=== PATIENT | female | born 1975 | race Caucasian/White ===

== ENCOUNTER 2017-03-05 10:19 | Emergency (ER) | payer SELFPAY ==
--- NOTE | 2017-03-05 10:55 | ED.PDOC ---
History of Present Illness - General Chief Complaint: Lower Extremity Injury Stated Complaint: right ankle pain s/p tripping Time Seen by Provider: 03/05/17 10:52 Source: patient, RN notes reviewed, Vital Signs reviewed Exam Limitations: no limitations - History of Present Illness Initial Comments: Patient reports she jumped off the porch onto some rocks and injured her R ankle. She is not sure exactly what happened. Now having pain over her lateral ankle. No popping, no numbness or tingling. Occurred: just prior to arrival Pain - Lower Extremity: moderate: Right Ankle Method of Injury: twisted Improving Factors: cold therapy, rest Worsening Factors: movement Allergies/Adverse Reactions: Allergies Acetaminophen [From Tylenol W/Codeine] Allergy (Verified 03/05/17 10:34) Butorphanol [From Stadol] Allergy (Verified 03/05/17 10:34) Codeine [From Tylenol W/Codeine] Allergy (Verified 03/05/17 10:34) Home Medications: Ambulatory Orders Lisinopril 40 mg PO 03/05/17 Review of Systems - Review of Systems Constitutional: States: no symptoms reported Musculoskeletal: States: joint pain - R ankle, joint swelling - R ankle Skin: States: no symptoms reported Neurological: Denies: numbness, paresthesia, tingling, weakness Past Medical History (General) - Patient Medical History Hx Seizures: No Hx Stroke: No Hx Dementia: No Hx Asthma: No Hx of COPD: No Hx Cardiac Disorders: No Hx Congestive Heart Failure: No Hx Pacemaker: No Hx Hypertension: Yes Hx Thyroid Disease: No Hx Diabetes: No Hx Gastroesophageal Reflux: No Hx Renal Disease: No Hx Cancer: No Hx of HIV: No Hx Hepatitis C: No Hx MRSA: No Surgical History: Hysterectomy, other - Vaccination History Hx Tetanus, Diphtheria Vaccination: No Hx Influenza Vaccination: No Hx Pneumococcal Vaccination: No Immunizations Up to Date: No - Social History Hx Tobacco Use: Yes Hx Chewing Tobacco Use: No Hx Alcohol Use: Yes Hx Substance Use: No Hx Substance Use Treatment: No Hx Depression: No Feels Threatened In Home Enviroment: No Feels Threatened In a Relationship: No Hx Physical Abuse: No Hx Emotional Abuse: No Hx Suspected Abuse: No - Female History Patient is a Female of Child Bearing Age (10 -59 yrs old): No Patient : No Family Medical History - Family History Father Family History: Unknown Living Status: Age at (years of age): 48 Hx Family Hypertension: Yes Hx Cardiac Disease: Yes Hx Family Diabetes: Yes - was on dialysis Mother Living Status: Still Living Hx Family Hypertension: Yes Hx Family Stroke: Yes Hx Cardiac Disease: Yes Hx Family Diabetes: Yes Hx Family Cancer: No Physical Exam - Physical Exam General Appearance: Alert, Comfortable, No apparent distress, Well Developed, Well Groomed, Well Hydrated, Well Nourished Cardiovascular/Respiratory: normal peripheral pulses Ankle: bone tenderness - R lateral malleolus, limited ROM, pain, soft tissue tenderness, swelling Foot: normal inspection, non-tender, no evidence of injury, normal ROM Neuro/Tendon: normal sensation, normal motor functions, normal tendon functions Mental Status: alert, oriented x 3 Skin: normal color, warm/dry Comments: Vital Signs - 24 hr 03/05/17 10:35 Pulse Rate [ 80 Left Apical] Respiratory 20 Rate Blood Pressure 169/95 [Left Arm] O2 Sat by Pulse 99 Oximetry Progress - EKG/XRAY/CT XRAY: ankle - No fracture per Radiologist Departure - Departure Clinical Impression: Sprain of right ankle or foot Time of Disposition: 11:37 Disposition: Discharge to Home or Self Care Condition: Good Departure Forms: ED Discharge - Pt. Copy, Patient Portal Self Enrollment Instructions: DI for Ankle Sprain Diet: resume usual diet Activity: increase activity as tolerated Referrals: CUONG DO [Primary Care Provider] - 1-2 Weeks Home Medications: Ambulatory Orders Lisinopril 40 mg PO 03/05/17
--- NOTE | 2017-03-05 11:31 | RAD ---
EXAM DESCRIPTION: Ankle,Right 3 Views CLINICAL HISTORY: 42 years Female, pain s/p twist COMPARISON: None. FINDINGS: 3 views of the right ankle show no acute fracture or malalignment. The tibiotalar joint space and talar dome are well-maintained. The base of the fifth metatarsal is intact. IMPRESSION: Negative exam. Electronically signed by: Nico Colbert MD 03/05/2017 11:31 AM CDT
[2017-03-05 11:54] VITALS: BP 154/93; O2SAT 97
== END 2017-03-05 11:50 | disposition home or self-care (01) ==
LOC: ER 10:19
DX: S93.401A Sprain of unspecified ligament of right ankle, initial encounter (principal); I10 Essential (primary) hypertension; Z87.891 Personal history of nicotine dependence; W17.89XA Other fall from one level to another, initial encounter; Z88.6 Allergy status to analgesic agent

== ENCOUNTER 2019-01-05 10:25 | Emergency (ER) | payer SELFPAY ==
[2019-01-05 10:44] VITALS: TEMP 98.9
[2019-01-05] MEDS ORDERED: SODIUM CHLORIDE 0.9% 1000ML 1,000 ML IVS ONE (10:49)
[2019-01-05] MEDS ORDERED: ALBUTEROL SULFATE 2.5 MG/3 ML VIAL NEB ONE (10:51)
[2019-01-05] MEDS ORDERED: HYDROcodone 10MG/APAP 325MG 1 EA TAB PO ONE (10:51)
[2019-01-05] MEDS ORDERED: IBUPROFEN 200 MG TAB PO ONE (10:51)
--- NOTE | 2019-01-05 11:34 | RAD ---
EXAM DESCRIPTION: Chest,2 Views CLINICAL HISTORY: 43 years Female cough COMPARISON: Portable chest 09/07/2016 TECHNIQUE: PA and lateral views of the chest are obtained. FINDINGS: Heart: The heart is normal in size and configuration. Vasculature: The aorta is unremarkable. The pulmonary vascularity is normal. Mediastinum: Unremarkable otherwise. No evidence of mass or adenopathy. Lungs: There is no focal consolidation in the lungs. Pleural spaces: There are no pleural effusions. There are no pneumothoraces. Osseous structures: There is no evidence of acute fracture, osseous destruction or osteoblastic lesions. Tubes and catheters: None. Upper abdomen: No acute findings. Chest wall: Unremarkable. IMPRESSION: No acute cardiopulmonary abnormality. Remainder of findings as described above. Electronically signed by: Amelia Arenas MD 01/05/2019 11:31 AM [facility]
--- NOTE | 2019-01-05 12:26 | ED.PDOC ---
History of Present Illness - General Chief Complaint: General Stated Complaint: fever, cough, body aches, sore throat, fatigue Time Seen by Provider: 01/05/19 10:48 Source: patient, Vital Signs reviewed Exam Limitations: no limitations - History of Present Illness Initial Comments: 43 yo female with flu-like symptoms for up to a week. Timing/Duration: unsure Severity: moderate Improving Factors: nothing Worsening Factors: nothing Associated Symptoms: cough, fever/chills, headaches, loss of appetite, malaise, weakness Allergies/Adverse Reactions: Allergies Butorphanol [From Stadol] Allergy (Verified 03/05/17 10:34) Codeine [From Tylenol W/Codeine] Allergy (Verified 03/05/17 10:34) Home Medications: Ambulatory Orders Benzonatate Perles [Tessalon Perles] 100 mg PO Q8HRS PRN 4 Days #12 cap 01/05/19 RX: Tramadol HCl 50 mg PO Q8HRS PRN 4 Days #12 tab 01/05/19 Review of Systems - Review of Systems Constitutional: States: see HPI EENTM: States: see HPI, nose congestion Respiratory: States: cough, wheezing. Denies: short of breath Cardiology: States: see HPI Gastrointestinal/Abdominal: States: see HPI Genitourinary: States: no symptoms reported Musculoskeletal: States: see HPI, muscle pain Skin: States: see HPI Neurological: States: see HPI Endocrine: States: no symptoms reported Hematologic/Lymphatic: States: no symptoms reported Past Medical History (General) - Patient Medical History Hx Seizures: No Hx Stroke: No Hx Dementia: No Hx Asthma: No Hx of COPD: No Hx Cardiac Disorders: No Hx Congestive Heart Failure: No Hx Pacemaker: No Hx Hypertension: Yes - not on meds Hx Thyroid Disease: No Hx Diabetes: No Hx Gastroesophageal Reflux: No Hx Renal Disease: No Hx Cancer: No Hx of HIV: No Hx Hepatitis C: No Hx MRSA: No Surgical History: Hysterectomy - Vaccination History Hx Tetanus, Diphtheria Vaccination: No Hx Influenza Vaccination: No Hx Pneumococcal Vaccination: No Immunizations Up to Date: Yes - Social History Hx Tobacco Use: Yes Hx Chewing Tobacco Use: No Hx Alcohol Use: No Hx Substance Use: No Hx Substance Use Treatment: No Hx Depression: No Hx Physical Abuse: No Hx Emotional Abuse: No Hx Suspected Abuse: No - Female History Patient is a Female of Child Bearing Age (10 -59 yrs old): Yes - hysterectomy Patient : No - Triage Comment ED Triage Comment: Pt wearing mask. Family Medical History - Family History Father Family History: Unknown Living Status: Age at (years of age): 48 Hx Family Hypertension: Yes Hx Cardiac Disease: Yes Hx Family Diabetes: Yes - was on dialysis Mother Living Status: Still Living Hx Family Hypertension: Yes Hx Family Stroke: Yes Hx Cardiac Disease: Yes Hx Family Diabetes: Yes Hx Family Cancer: No Physical Exam - Physical Exam General Appearance: Alert, Ill Appearing Ears, Nose, Throat: hearing grossly normal Neck: supple, normal inspection Respiratory: normal breath sounds, no respiratory distress, no accessory muscle use, other - rare wheeze Cardiovascular/Chest: regular rate, rhythm, no edema, no gallop, no JVD, no murmur Gastrointestinal/Abdominal: non tender, soft, no organomegaly Extremity: normal range of motion, normal inspection Neurologic: no motor/sensory deficits, alert, normal mood/affect, oriented x 3 Skin Exam: normal color, warm/dry Progress - Progress Progress: 01/05/19 12:23 Says she is feeling better. Resting comfortably. Departure - Departure Clinical Impression: Influenza Time of Disposition: 12:24 Disposition: Discharge to Home or Self Care Condition: Good Departure Forms: ED Discharge - Pt. Copy, Patient Portal Self Enrollment Instructions: Flu, Adult (DC) Referrals: Sunday Morris MD [Active Staff] - 01/10/19 (if no improvement) Prescriptions: Benzonatate Perles [Tessalon Perles] 100 mg PO Q8HRS PRN 4 Days #12 cap PRN Reason: Cough RX: Tramadol HCl 50 mg PO Q8HRS PRN 4 Days #12 tab PRN Reason: Moderate To Severe Pain Home Medications: Ambulatory Orders Benzonatate Perles [Tessalon Perles] 100 mg PO Q8HRS PRN 4 Days #12 cap 01/05/19 RX: Tramadol HCl 50 mg PO Q8HRS PRN 4 Days #12 tab 01/05/19
[2019-01-05 12:39] VITALS: BP 122/70; O2SAT 96
== END 2019-01-05 12:39 | disposition home or self-care (01) ==
LOC: ER 10:25
DX: J11.1 Influenza due to unidentified influenza virus with other respiratory manifestations (principal); I10 Essential (primary) hypertension; Z87.891 Personal history of nicotine dependence; Z88.8 Allergy status to other drugs, medicaments and biological substances; Z88.5 Allergy status to narcotic agent
CPT/HCPCS: 36415; 71046; 80048; 85025; 87502; 94640; J7030; J7611